=== PATIENT | male | born 1955 | race Caucasian/White ===

== ENCOUNTER 2022-07-05 12:48 | Emergency (ER) | payer BC, SELFPAY ==
[2022-07-05 13:00] VITALS: BP 127/84; PULSE 56; RESP 18; TEMP 36.2; O2SAT 95; BMI 25.4
--- NOTE | 2022-07-05 13:23 | ED.CHESTPAIN ---
HPI - Chest Pain General Chief Complaint: Chest Pain Stated Complaint: Chest pain Time Seen by Provider: 07/05/22 13:09 History of Present Illness HPI narrative: This 66-year-old male comes in reporting a couple days of rather persistent dull chest pain that is worse with exertion and relieved with remaining still. He does have a cardiac history and had a non STEMI 4 years ago. He had a couple stents placed at that time. He states that his symptoms feel similar to those symptoms back then. He does not have any nausea or vomiting but does report some mild episodes of lightheadedness and shortness of breath. He did also have some mild diaphoresis with exertion. Related Data Allergies Allergy/AdvReac Type Severity Reaction Status Date / Time amoxicillin Allergy Verified 07/05/22 12:59 Review of Systems Status of ROS Reports: 10 or more systems reviewed and unremarkable except as noted in History and below Narrative Constitutional: No fevers, no weight gain or loss. Eyes: No discharge. No vision changes. HENT: No congestion, no sore throat, no ear pain. Cardiovascular: No palpitations. Chest pain as described above. Respiratory: No wheezes, no cough. Gastrointestinal: No abdominal pain, no vomiting, no diarrhea. Genitourinary: No dysuria, no hematuria. Musculoskeletal: Normal range of motion. Skin: No rashes, no pruritis. Neurological: No dizziness, weakness, sensory change, speech change. Endo/Heme/Allergies: No bruising or bleeding. No polydipsia. Pysch: no suicidality, no anxiety, no insomnia. All other systems reviewed and are negative. [facility] Social History Smoking Status: Never smoker Do you use any of these nicotine containing products: None Second hand tobacco smoke exposure: No How often do you have a drink containing alcohol: 2-3 times a week How many standard drinks containing alcohol do you have on a typical day: 1 or 2 AUDIT-C Alcohol total score: 3 Non-prescribed substance use: denies use service: No Exam Narrative Exam Narrative: Constitutional: Well-developed, well-nourished, no acute distress. HEENT: Normocephalic, atraumatic. Neck: Normal range of motion. Nontender. Supple. Heart: Regular. No murmurs. Normal rate. Intact distal pulses. Lungs: Clear to auscultation. No chest discomfort. No wheezes, rhonchi, or rales. Abdomen: Normal bowel sounds. Nontender. No rebound tenderness. Genitalia: Deferred. Back: No midline tenderness. Normal range of motion. Extremities: Normal range of motion. No injury. Skin: Intact. No rash. Warm. No erythema or pallor. Neurologic: No altered sensation. No weakness. Alert and oriented. Psychiatric: No suicidality. No anxiety or depression. No insomnia. Nursing notes and vitals signs are reviewed. Const Vital Signs, click to edit/add: Vital Signs - 24 hr 07/05/22 13:00 07/05/22 13:40 07/05/22 14:00 Temperature 97.2 F L Pulse Rate [Apical] 56 L 54 L 54 L Respiratory Rate 18 11 L 15 Blood Pressure [Left Upper Arm] 127/84 134/82 133/80 Pulse Oximetry 95 97 95 Oxygen Delivery Method Room Air Room Air Room Air 07/05/22 14:30 07/05/22 15:00 Temperature Pulse Rate [Apical] 55 L 55 L Respiratory Rate 14 14 Blood Pressure [Left Upper Arm] 128/79 140/91 H Pulse Oximetry 98 98 Oxygen Delivery Method Room Air Room Air Course Vital Signs Vital signs: Initial Vital Signs Temperature 97.2 F L 07/05/22 13:00 Temperature Source Temporal Artery Scan 07/05/22 13:00 Pulse Rate 56 L 07/05/22 13:00 Pulse Rhythm 07/05/22 13:00 Respiratory Rate 18 07/05/22 13:00 Blood Pressure 127/84 07/05/22 13:00 Blood Pressure Mean 98 07/05/22 13:00 Blood Pressure Position Supine 07/05/22 13:00 Pulse Oximetry 95 07/05/22 13:00 Oxygen Delivery Method 07/05/22 13:00 Vital Signs Temperature 97.2 F L 07/05/22 13:00 Pulse Rate 56 L 07/05/22 13:00 Respiratory Rate 18 07/05/22 13:00 Blood Pressure 127/84 07/05/22 13:00 Pulse Oximetry 95 07/05/22 13:00 Oxygen Delivery Method 07/05/22 13:00 Temperature 97.2 F L 07/05/22 13:00 Pulse Rate 55 L 07/05/22 15:00 Respiratory Rate 14 07/05/22 15:00 Blood Pressure 140/91 H 07/05/22 15:00 Pulse Oximetry 98 07/05/22 15:00 Oxygen Delivery Method 07/05/22 15:00 MDM - Chest Pain MDM Narrative Medical decision making narrative: This 66-year-old comes in with rather constant chest discomfort over the past couple days. He states that it is worse however with activity. He reports that it there is some similarity to his previous angina symptoms. Today his EKG and troponin returned with normal results. Other lab results also are reassuring. Given his signs and symptoms that are yet suspicious, I did consult with the supervisor welding equipment repairer on-call an Gonzalez Mckenna. He stated that the patient is okay to return home and should follow up soon for a stress test. The patient states that he does have an appointment with his supervisor welding equipment repairer in about a month and plans to call him today or tomorrow to arrange the stress test which has some extra challenge involved because the patient has dextrocardia. I did describe signs and symptoms that would indicate a need for return and re-evaluation. Lab Data Labs: Lab Results 07/05/22 07/05/22 07/05/22 Range/Units 13:34 13:34 13:34 WBC 7.08 (4.50-11.00) K/uL RBC 4.87 (4.30-5.90) m/uL Hgb 16.0 (13.5-17.5) gm/dL Hct 48.3 (37.0-53.0) % MCV 99 (80-100) fL MCH 33 (26-34) pg MCHC 33 (32-36) gm/dL RDW Coeff of Lulu 12.7 (11.5-15.5) % Plt Count 179 (140-440) K/uL Neut % (Auto) 58.2 (42.0-72.0) % Lymph % (Auto) 32.6 (20-44) % Summers % (Auto) 6.2 (0.0-11.0) % Eos % (Auto) 2.3 (0.0-7.0) % Baso % (Auto) 0.6 (0.0-3.0) % Neut # (Auto) 4.12 (1.7-7.0) K/uL Lymph # (Auto) 2.31 (0.90-2.90) K/uL Summers # (Auto) 0.40 (0.00-0.90) K/UL Eos # (Auto) 0.16 (0.00-0.50) K/uL Baso # (Auto) 0.04 (0.00-0.30) K/uL Abs Immat Gran (auto) 0.01 (0.00-0.30) K/uL Sodium 137 (135-149) mmol/L Potassium 4.5 (3.6-5.1) mmol/L Chloride 103 (96-114) mmol/L Carbon Dioxide 26 (20-32) mmol/L BUN 20 (7-30) mg/dL Creatinine 0.9 (0.5-1.5) mg/dL Estimated Creat Clear 76.35 Estimated GFR 94 ml/min Glucose 92 (60-115) mg/dL Calcium 8.9 (8.4-10.6) mg/dL POC Troponin I 0.00 L (0.01-0.04) ng/ml ECG Data Attestation: I personally reviewed and interpreted this ECG as follows: Interpretation: This patient has report of dextrocardia so the leads were reversed. Normal sinus rhythm. Rate 57 beats per minute. There are no specific ST or T-wave abnormalities. Discharge Plan Discharge Clinical Impression: Chest pain Condition: Stable Instructions: Chest Pain (ED) Additional Instructions: Follow-up with cardiology clinic and make arrangements for a stress test. Return if worsening or persistent symptoms happen. Follow Up/Referrals: Reji Ramos MD [Primary Care Provider] - Stand Alone Forms: [employer] Info Instructions
[2022-07-05] MEDS: ASPIRIN 81 MG TAB.CHEW 324 MG PO (13:32)
[2022-07-05 13:40] VITALS: BP 134/82; PULSE 54; RESP 11; O2SAT 97
[2022-07-05 14:00] VITALS: BP 133/80; PULSE 54; RESP 15; O2SAT 95
[2022-07-05 14:03] LABS: Basophils Absolute Auto 0.04 K/uL (0.00-0.30); Basophils Percent Auto 0.6 % (0.0-3.0); Eosinophils Absolute Auto 0.16 K/uL (0.00-0.50); Eosinophils Percent Auto 2.3 % (0.0-7.0); Hematocrit 48.3 % (37.0-53.0); Immature Granulocytes Abs Auto 0.01 K/uL (0.00-0.30); Lymphocytes Absolute Auto 2.31 K/uL (0.90-2.90); Lymphocytes Percent Auto 32.6 % (20-44); Mean Corpuscular HGB Conc 33 gm/dL (32-36); Mean Corpuscular Hemoglobin 33 pg (26-34); Mean Corpuscular Volume 99 fL (80-100); Monocytes Percent Auto 6.2 % (0.0-11.0); Neutrophils Absolute Auto 4.12 K/uL (1.7-7.0); Neutrophils Percent Auto 58.2 % (42.0-72.0); Platelet Count* 179 K/uL (140-440); RDW Coefficient of Variation % 12.7 % (11.5-15.5); Red Blood Count 4.87 m/uL (4.30-5.90); White Blood Count* 7.08 K/uL (4.50-11.00)
[2022-07-05 14:22] LABS: Slide Review Reflex No
[2022-07-05 14:30] VITALS: BP 128/79; PULSE 55; RESP 14; O2SAT 98
[2022-07-05 14:40] LABS: Chloride* 103 mmol/L (96-114)
[2022-07-05 14:41] LABS: Potassium* 4.5 mmol/L (3.6-5.1); Sodium* 137 mmol/L (135-149)
[2022-07-05 14:43] LABS: Creatinine* 0.9 mg/dL (0.5-1.5); Est. Creatinine Clearance* 76.35; Estimated Glomerular Filt Rate 94 ml/min
[2022-07-05 14:44] LABS: Blood Urea Nitrogen* 20 mg/dL (7-30); Calcium* 8.9 mg/dL (8.4-10.6); Carbon Dioxide* 26 mmol/L (20-32); Glucose* 92 mg/dL (60-115)
[2022-07-05 15:00] VITALS: BP 140/91; PULSE 55; RESP 14; O2SAT 98
== END 2022-07-05 15:38 | disposition home or self-care (01) ==
PROVIDERS: Emergency Provider Emergency Medicine Emergency Medical Services; PCP Family Medicine
DX: R07.9 Chest pain, unspecified (principal)
CPT/HCPCS: 36415; 80048; 84484; 85025; 93005; 99285; A9270

== ENCOUNTER 2022-09-26 07:47 | Outpatient (CLI) | payer BC, SELFPAY ==
--- NOTE | 2022-09-26 08:00 | CRLHL7_ITS ---
For Patients: As a result of the Century Cures Act, medical imaging exams and procedure reports are released immediately into your electronic medical record. You may view this report before your referring provider. If you have questions, please contact your health care provider. [facility] ??? [facility] MYOCARDIAL PERFUSION SCAN, 09/26/2022 CLINICAL HISTORY: 66-year-old male. Coronary artery disease. Myocardial infarction. Percutaneous coronary intervention. Hypertension. Family history of heart disease. Height: The patient???s height was not provided. Weight: 180 pounds. TECHNIQUE: (Resting SPECT and stress gated SPECT with wall motion and ejection fraction) Stress: Exercise treadmill (9 minutes 1 second) Peak Heart Rate: 136 beats per minute Peak Blood Pressure Systolic: 190 mmHg Rate Pressure Product: 25,840 Dose (Stress/Rest): 32.4 mCi technetium-labeled sestamibi/8.23 mCi technetium-labeled sestamibi (IV) Comparison: None FINDINGS: There is good uptake of activity by the left ventricle. No left ventricular enlargement is noted. End-diastolic volume 98 mL. End-systolic volume 21 mL. There is a small fixed defect within the basal and mid lateral wall compatible with a nontransmural infarction. No periinfarct ischemia. No other significant fixed or reversible defects are identified. The gated images demonstrate a normal left ventricular ejection fraction visually estimated at 65%. The mid and basal lateral wall appears to be largely akinetic. IMPRESSION: 1) Basal and mid lateral infarct without periinfarct ischemia. 2) Normal left ventricular ejection fraction. This study was jointly reviewed by Radiology and Cardiology. SHAHID BADILLO M.D. Diagnostic/Nuclear Medicine Radiologist [email or web address], [email or web address]. [email or web address] Transcribed: 4:47 p.m. BRAULIO LI M.D. Department of Cardiology RD/Dictated by: Shahid Badillo MD @ 09/26/2022 2:48:00 PM (Electronically Signed)
[2022-09-26 10:00] VITALS: BP 145/84; PULSE 86
--- NOTE | 2022-09-26 11:19 | PM.ST ---
Stress Test Note Date Date of test: 09/26/22 Providers Primary care provider: Reji Ramos Stress test physician: Andres Sánchez Stress Test Note Stress test ordered: Stress Myoview Indication for test: hx of CAD Stress test medicine: None Results discussion: Patient is a very nice 66-year-old gentleman who presents for the above test after discussion the risks benefits and side effects he would like to proceed pretest EKG shows normal sinus rhythm, with a ventricular rate of 67, and blood pressure 125 and 77, it is interesting that Mom we used a right-sided leads, as he does have a history of dextrocardia. Standard Ernny protocol is followed for a total of 9 minutes 1 seconds, achieved a metabolic equivalent of 10.5 Mets, with a maximum heart rate of 136, is deemed valid and did attain his maximum heart rate. Test is terminated because of fulfillment of protocol, during this test there was no ST wave changes suggestive ischemia, there was no chest pain shortness of breath or any other subjective complaints, he did not have any dysrhythmias. He recovered normally in the recovery. Impression: Negative exercise Myoview Follow up suggested: Await nuclear images which will be read by Cardiology and nuclear Medicine, patient left this testing facility in excellent condition.
== END 2022-09-26 07:48 | disposition home or self-care (01) ==
PROVIDERS: PCP Family Medicine; Visit Provider Family Medicine
DX: I25.10 Atherosclerotic heart disease of native coronary artery without angina pectoris (principal); I10 Essential (primary) hypertension
CPT/HCPCS: 78452; 93016; 93017; A9500